=== PATIENT | male | born 1975 | race Caucasian/White ===

== ENCOUNTER 2022-02-17 19:31 | Emergency (ER) | payer OTHER ==
[~2022-02-17 19:31] MED LIST: FLOMAX0.4 MG PO; TORADOL 10 MG T10 MG PO; ZOFRAN4 MG PO
[2022-02-17 20:06] LABS: HEMOGLOBIN 16.5 gm/dl (14.0-17.5); RED BLOOD COUNT 5.39 M/UL (4.20-5.50); WHITE BLOOD COUNT 10.3 K/UL (4.5-11.0)
[2022-02-18] MEDS ORDERED: ZOFRAN ODT 4 MG4 MG SL (05:17)
== END 2022-02-18 05:27 | disposition home or self-care (01) ==
LOC: ER1 19:31
PROVIDERS: Student in an Organized Health Care Education/Training Program
DX: K52.9 Noninfective gastroenteritis and colitis, unspecified (principal)
CPT/HCPCS: 80053; 81001; 83690; 85025; 93005; 99284